=== PATIENT | male | born 1970 | race Caucasian/White ===

== ENCOUNTER 2018-05-26 02:28 | Emergency (ER) | payer OTHER ==
[~2018-05-26] VITALS: Ht 175.3 cm; Wt 127.0 kg
[2018-05-26 02:30] VITALS: BP 160/92
[2018-05-26 04:03] LABS: Basophils # (auto) 0 uL; Basophils % (auto) 0.4 % (0.0-2.0); Eosinophils # (auto) 0.2 uL; Eosinophils % (auto) 1.9 % (0.0-7.0); Hematocrit 45.7 % (41.0-53.0); Lymphocytes # (auto) 3.3 uL; Lymphocytes % (auto) 36.3 % (10.0-50.0); Mean Corpuscular Hemoglobin 29.8 pg (28.0-32.0); Mean Corpuscular Volume 85.4 fL (80.0-100.0); Monocytes # (auto) 0.8 uL; Monocytes % (auto) 8.7 % (0.0-12.0); Neutrophils # (auto) 4.8 uL; Neutrophils % (auto) 52.7 % (37.0-80.0); Nucleated Red Blood Cells % 0.1 %; Platelet Count (auto) 230 10^3/uL (140-450); Red Blood Cells 5.35 10^6/uL (4.5-5.90); Red Cell Distribution Width 12.5 % (11.8-14.3); White Blood Cell 9.1 10^3/uL (4.4-10.8)
[2018-05-26 04:19] LABS: INR 0.87 (0.9-1.15); Partial Thromboplastin Time 24.6 sec (23.78-33.04); Prothrombin Time 9.4 sec (9.27-12.13)
[2018-05-26 04:20] LABS: Albumin 3.8 g/dL (3.4-5.0); BUN/Creatinine Ratio 12.6; Calcium 8.4 mg/dL (8.5-10.1); Magnesium 2.2 mg/dL (1.6-2.6); Potassium 4.2 mmol/L (3.5-5.1)
[2018-05-26 04:25] LABS: Bilirubin, Total 0.4 mg/dL (0.2-1.0); Total Protein 7.3 g/dL (6.4-8.2)
== END 2018-05-26 17:24 | disposition left against medical advice (07) ==
LOC: EDBD 02:28 → ER 02:38
CPT/HCPCS: 36415; 71046; 80053; 83735; 84484; 85025; 85610; 85730